=== PATIENT | male | born 1960 | race African-American/Black ===

== ENCOUNTER 2023-08-27 22:17 | Emergency (ER) | payer BC ==
[2023-08-27 22:23] VITALS: BP 149/82; PULSE 77; RESP 18; TEMP 99.4; BMI 26.6
[2023-08-27] MEDS ORDERED: IBUPROFEN 400 MG TABLET (FP) PO ONE ×2 (22:48→22:56)
[2023-08-27] MEDS ORDERED: AZITHROMYCIN 500 MG TABLET PO ONE (23:34)
[2023-08-27] MEDS ORDERED: AZITHROMYCIN 500 MG TABLET ONE (23:41)
== END 2023-08-28 01:14 | disposition home or self-care (01) ==
LOC: JER 22:17
DX: R06.02 Shortness of breath (principal); R51.9 Headache, unspecified; R05.9 Cough, unspecified; J18.9 Pneumonia, unspecified organism; J10.1 Influenza due to other identified influenza virus with other respiratory manifestations; Z20.822 Contact with and (suspected) exposure to COVID-19
CPT/HCPCS: 0241U-QW; 71046-TC-FY; 99284-25